=== PATIENT | female | born 1990 | race Caucasian/White ===

== ENCOUNTER → 2017-01-18 | Outpatient (CLI) | payer OTHER | LOC: FIMAGING 08:07 | PROVIDERS: ATTEND Advanced Practice Midwife | DX: Z34.02 Encounter for supervision of normal first pregnancy, second trimester (principal); Z3A.20 20 weeks gestation of pregnancy ==

== ENCOUNTER → 2017-06-12 | Outpatient (CLI) | payer OTHER | LOC: FIMAGING 12:09 | PROVIDERS: ATTEND Advanced Practice Midwife | DX: O48.0 Post-term pregnancy (principal) ==

== ENCOUNTER 2017-06-14 08:10 | Inpatient (IN) | payer OTHER ==
[2017-06-14] MEDS ORDERED: OLIVE OIL 118 ML BTL MISC PRN (08:42)
[2017-06-14] MEDS ORDERED: LR 1,000 ML IV PRN (08:42)
[2017-06-14] MEDS ORDERED: EPSOM SALT 454 GM TP PRN (08:42)
[2017-06-14] MEDS ORDERED: OXYTOCIN/RINGERS LACTATE 1,000 ML IV PRN (08:42)
[2017-06-14] MEDS ORDERED: TERBUTALINE SULFATE 1 MG/ML VIAL IV PRN (08:42)
[2017-06-14] MEDS ORDERED: LIDOCAINE 1% 300 MG/30 ML SDV ONE (08:59)
[2017-06-14] MEDS ORDERED: TERBUTALINE SULFATE 1 MG/ML VIAL ONE (08:59)
[2017-06-14] MEDS ORDERED: OXYTOCIN 10 UNIT/ML VIAL ONE (08:59)
[2017-06-14] MEDS ORDERED: OLIVE OIL 118 ML BTL ONE (08:59)
[2017-06-14] MEDS ORDERED: AMMONIA AROMATIC 1 EACH AMP IH ONE (08:59)
[2017-06-14] MEDS ORDERED: MISOPROSTOL 200 MCG TAB ONE (09:00)
--- NOTE | 2017-06-14 09:01 | OBPROG ---
OBG Labor Progress Note Assessment/Plan: Assessment:cat 2 fhr pain with contractions / prodromal labor for days arom clear fluid at the center 0500 contractions irregular 5-7 minutes apart exam 5 cm questioning position complaint of back pain with the contractions Plan:admit, epidural and pitocin per protocol 06/14/17 08:58 Subjective: Complaint of pain and requesting epidural for pain. - SVE Dilation (cm): 5 - Physical Exam General Appearance: WD/WN, alert, moderate distress Respiratory: chest non-tender, lungs clear, normal breath sounds Cardiac/Chest: normal peripheral pulses, regular rate, rhythm Abdomen: hypoactive bowel sounds Extremities: normal range of motion, Mindy's sign (negative bilaterally) DTR- Lower Extremities: Knee (R): 1+, Knee (L): 1+ (no clonus) Skin: normal color, warm/dry Neuro/Psych: no motor/sensory deficits, alert, normal mood/affect, oriented x 3 ICD10 Worksheet Patient Problems: Problems Problem Status Onset labor/ transfer from the center Acute
[2017-06-14] MEDS ORDERED: NALOXONE HCL 0.4 MG/ML INJ IVP PRN (09:06)
[2017-06-14] MEDS ORDERED: ONDANSETRON 4 MG/2 ML VIAL IVP PRN (09:06)
[2017-06-14] MEDS ORDERED: PHENYLEPHRINE HCL 100 MCG/ML SYR IVP PRN (09:06)
[2017-06-14] MEDS ORDERED: BUPIVACAINE 0.25% 30 ML SDV ONE (09:09)
[2017-06-14] MEDS ORDERED: fentaNYL 100 MCG/2 ML INJ ONE (09:09)
[2017-06-14] MEDS ORDERED: fentaNYL 2MCG/ML/BUP 0.1% RTU 100 ML BAG EP ONE (09:11)
[2017-06-14 09:22] LABS: ADD DIFF? YES; ADD MORPH? NO; ATYPICAL LYMPHOCYTE FLAG 0 (0-99); FRAGMENT RBC FLAG 0 (0-99); HEMATOCRIT 39.5 % (38.0-47.0); HEMOGLOBIN 13.8 g/dL (12.6-16.3); LEFT SHIFT FLG 10 (0-99); LIPEMIA HEMOLYSIS FLAG 90 (0-99); MEAN CELL HEMOGLOBIN 29.7 pg (27.9-34.1); MEAN CELL HEMOGLOBIN CONCENTR. 34.9 g/dL (32.4-36.7); MEAN CELL VOLUME 85.1 fL (81.5-99.8); MEAN PLATELET VOLUME 10.4 fL (8.7-11.7); PLATELET CLUMPS FLAG 0 (0-99); PLATELET COUNT 214 10^3/uL (150-400); RED BLOOD CELL COUNT 4.64 10^6/uL (4.18-5.33); RED CELL DISTRIBUTION WIDTH 13.3 % (11.5-15.2)
[2017-06-14 09:24] LABS: ADD SCAN? NO
[2017-06-14] MEDS ORDERED: LR 500 ML IV SCH (09:30)
[2017-06-14] MEDS ORDERED: fentaNYL 2MCG/ML/BUP 0.1% RTU 100 ML EP SCH (09:30)
[2017-06-14] MEDS ORDERED: OXYTOCIN/RINGERS LACTATE 500 ML IV SCH (09:30)
--- NOTE | 2017-06-14 09:40 | GHP ---
[f rep st] HISTORY AND PHYSICAL DATE OF ADMISSION: 06/14/2017 HISTORY OF PRESENT ILLNESS: The patient is a 27-year-old, 1, para 0, who comes as a transfe r from the [facility], with complaints of prodromal labor, rupture of membranes, AROM a t 0500 on 06/14/2017, with no forward progress. Originally, thought patient was 9 cm at the C enter, and now with an exam patient is 5 cm. The patient has been receiving routine care through [facility] since beginning of the on 10/24/2016. States feeling positive f etal movement. Continuing to have clear fluid leaking vaginally. Positive bloody show. Coping anamika r through the contractions that are 5 to 7 minutes apart. MEDICAL HISTORY: Patient has asthma. Migraines and headaches, none since the . SURGICAL HISTORY: Denies. SOCIAL HISTORY: Patient is . Denies smoking history. Denies drug history. MEDICATIONS: Taking routine vitamins and no other medications, other than occasional inhal er use. GYNECOLOGICAL HISTORY: Genital warts. Oral contraceptive use as well as condom use. FAMILY HISTORY: Noncontributory. LABS: Patient is O positive. Antibody negative. RPR is nonreactive. HIV is negative. Rubella is immune. Hepatitis is negative. Hepatitis C is negative. Pap is within normal limits. Gonorrhea and chlamydia are negative. The patient and family declined genetic screening. TSH was within norm al limits at 1.17 on 10/30/2016. 1-hour GTT was within normal limits, and patient is GBS negative. HISTORY: Has been benign. Denies any problems. Patient is a primip. PHYSICAL ASSESSMENT: GENERAL APPEARANCE: Patient is awake, alert, oriented x3. LUNGS: Clear bila terally. ABDOMEN: Bowel sounds are positive in all 4 quadrants. EXTREMITIES: DTRs are 1+ bilater ally with no clonus. Homans sign is negative bilaterally. ASSESSMENT: Patient on admission requested nitrous and is utilizing that for pain relief, but has c hosen to move onto an epidural for continued pain relief. PLAN OF CARE: 1. GBS negative. 2. Pain relief epidural, as requested. 3. Consult physician for plan of care. 4. Epidural JENI, and then Pitocin per protocol. 5. Patient has been consented. Discussed risks, benefits, and alternatives of Pitocin as well as e pidural, and has consented with plan of care. /[id number]/MODL
[2017-06-14 10:03] LABS: PLATELET ESTIMATE ADEQUATE (ADEQ)
[2017-06-14] MEDS ORDERED: D5W LR 500 ML IV ONE (11:30)
--- NOTE | 2017-06-14 15:59 | OBDEL ---
Info Type: Vaginal GBS+: No Indications for Delivery: Spontaneous Labor Vaginal Delivery - Labor and Delivery Onset of Contractions Date: 06/13/17 Onset of Contractions Time: 23:00 Onset of Contractions Type: Augmented Rupture of Membranes Date: 06/14/17 Rupture of Membranes Time: 05:00 Rupture of Membranes Type: Artificial Amniotic Fluid Color: Clear Dilation Complete Date: 06/14/17 Dilation Complete Time: 12:30 Placenta Delivery Date: 06/14/17 Placenta Delivery Time: 15:35 Total Hours of Labor: 16 Non-surgical Procedures: Amniotomy Laceration: 2nd Degree, Other (Specify) (Right vaginal wall) Repair: 3-0, Vicryl Vaginal Sponge Count Correct: Yes Vaginal Needle Count Correct: Yes Vaginal Sweep Performed: Yes EBL: 300 cc Delivery Events: None - Medications Labor Augmentation/Induction Methods Used: Pitocin Labor Augmentation/Induction Indication: Other (Specify) (Prolonged second stage ) [facility] [place] Delivery Date: 06/14/17 Delivery Time: 15:31 MATTEO: 06/04/17 Gestational Age: 41 week(s) and 3 day(s) Sex of : Male Score (1 Min): 8 Score (5 Min): 9 ICD10 Worksheet Patient Problems: Problems Problem Status Onset (spontaneous vaginal delivery) Acute labor/ transfer from the center Acute - ICD10 Problem Qualifiers (1) (spontaneous vaginal delivery)
[2017-06-14] MEDS ORDERED: HYDROCORTISONE 0.5% CREAM TP PRN (16:06)
[2017-06-14] MEDS ORDERED: DOCUSATE SODIUM 100 MG CAP PO PRN (16:06)
[2017-06-14] MEDS ORDERED: SIMETHICONE 80 MG TAB CHEW PO PRN (16:06)
[2017-06-14] MEDS: IBUPROFEN 600 MG TAB PO PRN ×2 (16:07→21:54)
[2017-06-15] MEDS: IBUPROFEN 600 MG TAB PO PRN ×2 (04:52→11:44)
--- NOTE | 2017-06-15 13:41 | OBPP ---
Progress Note Assessment/Plan: Assessment: ppd# 1 s/p center transport breast feeding Plan: would like to go home. patient and to contact center about their follow up protocol. discharge instructions and follow up plan discussed 06/15/17 13:38 Subjective: patient is doing well. pain is well controlled. patient is tired but mood is good. working on breast feeding. denies headache and changes in vision. passing gas. normal lochia. Objective: 06/14/17 08:35 Patient ABO/Rh O POSITIVE 06/14/17 08:35 Temp Pulse Resp BP Pulse Ox 36.8 C 75 16 103/56 L 96 06/15/17 10:00 06/15/17 10:00 06/15/17 10:00 06/15/17 10:00 06/15/17 10:00 Physical Exam - Physical Exam General Appearance: WD/WN, alert, no apparent distress Respiratory: chest non-tender, lungs clear, normal breath sounds Cardiac/Chest: normal peripheral pulses, regular rate, rhythm Abdomen: normal bowel sounds, non-tender Extremities: normal range of motion, non-tender, normal inspection, normal capillary refill Skin: normal color, warm/dry Neuro/Psych: no motor/sensory deficits, alert, normal mood/affect, oriented x 3
--- NOTE | 2017-06-15 13:45 | OBGCSDC ---
General Delivery Information - General Info : 1 Para: 1 Delivery Physician/CNM: Shanna Mays Admission Date: 06/14/17 Labs: Patient ABO/Rh O POSITIVE 06/14/17 08:35 Hct 39.5 % (38.0-47.0) 06/14/17 08:35 Vaginal - Diagnosis Labor: Augmented Rupture of Membranes Type: Artificial Amniotic Fluid Color: Clear Laceration: 2nd Degree, Other (Specify) (Right vaginal wall) Repair: 3-0, Vicryl Delivery Events: None - Operations/Procedures Non-surgical Procedures: Amniotomy L&D Analgesia/Anesthesia Type: Epidural - Hospital Course Antepartum: care with [facility] Intrapartum: labor at [facility]. arrest of dilation. came in for pain management and augmentation. got epidural. pushed well : working on breast feeding. pain is well controlled. normal lochia. denies headache and changes in vision. - Delivery Non-surgical Procedures: Amniotomy L&D Analgesia/Anesthesia Type: Epidural [place] [facility] Delivery Date: 06/14/17 Delivery Time: : MATTEO: 06/04/17 Gestational Age: 41 week(s) and 4 day(s) Sex of Infant: Male Weight (gm): 0 g Score (1 Min): 8 Score (5 Min): 9 Discharge Information - Discharge Information Discharge Medications: Ibuprofen, Vitamins Condition: Good Instruction/Follow Up: See Instruction Sheet, Four Weeks, Six Weeks (or at center as instructed) Discharge Physician/CNM: Doris Bedoya
[2017-06-15 16:39] VITALS: BP 103/68; PULSE 89; RESP 19; TEMP 98; O2SAT 95
== END 2017-06-15 17:00 | disposition home or self-care (01) | DRG 775 ==
LOC: FLD 08:10 → FOB 18:24
PROVIDERS: ADMIT Obstetrics & Gynecology; ATTEND Obstetrics & Gynecology
DX: O62.1 Secondary uterine inertia (principal); Z37.0 Single live birth; Z3A.41 41 weeks gestation of pregnancy; O70.1 Second degree perineal laceration during delivery
CPT/HCPCS: J2590; J3010; J3105